=== PATIENT | female | born 2000 | race Two or more races ===

== ENCOUNTER 2024-06-22 12:21 | Emergency (ER) | payer OTHER ==
[~2024-06-22] VITALS: Ht 152.4 cm; Wt 45.4 kg
[2024-06-22] MEDS ORDERED: ACETAMINOPHEN ES 500 MG TABLET ONE (12:49)
[2024-06-22] MEDS ORDERED: IBUPROFEN 600 MG TABLET ONE (12:49)
[2024-06-22] MEDS: ACETAMINOPHEN ES 500 MG TABLET PO ONE (12:53)
[2024-06-22] MEDS: IBUPROFEN 600 MG TABLET PO ONE (12:53)
[2024-06-22] MEDS ORDERED: IBUP-1490 PO (13:37)
[2024-06-22 13:56] VITALS: BP 121/69; TEMP 98.5; O2SAT 100
[2024-06-23] MEDS ORDERED: CYCL5TAB PO (12:16)
[2024-06-23] MEDS ORDERED: LIDO30AD10 TP (12:16)
== END 2024-06-22 13:57 | disposition home or self-care (01) ==
LOC: ER 12:26
DX: S93.409A Sprain of unspecified ligament of unspecified ankle, initial encounter (principal); S90.32XA Contusion of left foot, initial encounter; Z91.018 Allergy to other foods; V03.10XA Pedestrian on foot injured in collision with car, pick-up truck or van in traffic accident, initial encounter; Y93.89 Activity, other specified; Y92.488 Other paved roadways as the place of occurrence of the external cause; Y99.8 Other external cause status
CPT/HCPCS: 73610-TC; 73630-TC; 82962-TC

== ENCOUNTER 2024-06-23 09:53 | Emergency (ER) | payer OTHER ==
[~2024-06-23] VITALS: Ht 152.4 cm; Wt 42.2 kg
[~2024-06-23 09:53] MED LIST: IBUP-1490 PO
[2024-06-23 10:14] VITALS: BP 148/98; TEMP 98.1; O2SAT 99
[2024-06-23 11:21] LABS: PREGNANCY TEST URINE QUAL NEGATIVE (NEGATIVE)
[2024-06-23] MEDS ORDERED: KETOROLAC TROMETHAMINE 15 MG/ML VIAL ONE (11:24)
[2024-06-23] MEDS: KETOROLAC TROMETHAMINE 15 MG/ML VIAL IM ONE (11:31)
[2024-06-23] MEDS ORDERED: LIDO30AD10 TP (12:16)
[2024-06-23] MEDS ORDERED: CYCL5TAB PO (12:16)
== END 2024-06-23 12:00 | disposition home or self-care (01) ==
LOC: ER 10:05
DX: S43.401A Unspecified sprain of right shoulder joint, initial encounter (principal); S83.91XA Sprain of unspecified site of right knee, initial encounter; Z60.2 Problems related to living alone; V03.10XA Pedestrian on foot injured in collision with car, pick-up truck or van in traffic accident, initial encounter; Y93.01 Activity, walking, marching and hiking; Y92.488 Other paved roadways as the place of occurrence of the external cause; Y99.8 Other external cause status
CPT/HCPCS: 99284; 71045; 96372; 73564; 73030; 84703; J1885